=== PATIENT | male | born 1980 | race Caucasian/White ===

== ENCOUNTER 2018-12-20 19:00 | Inpatient (IN) | payer MEDICAID ==
[~2018-12-20] VITALS: Ht 170.2 cm; Wt 61.4 kg
[2018-12-20] MEDS ORDERED: AMPICILLIN/SULB 3 GM/NS (PMX) 100 ML IVPB STA (23:46)
--- NOTE | 2018-12-20 23:49 | ERD ---
ER Documentation Chief Complaint Chief Complaint L arm/hand swelling X 3 days HPI This is a 38-year-old man who was injecting heroin into his left upper extremity 2 days ago , he says that he is getting progressive swelling to the entire left arm. He said there is some erythema to the hand and that the swelling began in the hand has spread up the arm up to the shoulder now. No shortness of breath no chest pain denies any fever no numbness or weakness ROS All systems reviewed and are negative except as per history of present illness. Allergies Allergies: Coded Allergies: No Known Allergy (Unverified , 12/21/18) FmHx Family History: No coronary disease Physical Exam Vitals Vital Signs Date Temp Pulse Resp B/P (MAP) Pulse Ox O2 O2 Flow FiO2 Time Delivery Rate 12/20/18 100.0 99 18 121/63 100 19:31 (82) Physical Exam Const: Well-developed, well-nourished Head: Atraumatic, normocephalic Eyes: Normal Conjunctiva, PERRLA, EOMI, normal sclera, no nystagmus ENT: Normal External Ears, Nose and Mouth, moist mucus membranes. Neck: Full range of motion. No meningismus, no lymphadenopathy. Resp: Clear to auscultation bilaterally, no wheezing, rhonchi, rales Cardio: Regular rate and rhythm, no murmurs, S1 S2 present Abd: Soft, non tender x 4, non distended. Normal bowel sounds, no guarding or rebound, no pulsitile abdominal masses or bruits Skin: No petechiae or rashes, no ecchymosis , no maculopapular rash Back: No midline or flank tenderness Ext: No cyanosis, left upper extremity with the entire arm firm with edema, some erythema to the dorsum of the hand, FROM x 4, normal inspection, n eurovascularly intact x 4 Neur: Awake and alert, STR 5/5 x 4, sensation intact x 4, no focal f indings, cerebellum intact Psych: Normal Mood and Affect Result Diagram: 12/21/18 0000 12/21/18 0000 Results 24 hrs Laboratory Tests Test 12/21/18 00:00 White Blood Count 13.8 10^3/ul Red Blood Count 3.75 10^6/ul Hemoglobin 10.4 g/dl Hematocrit 31.8 % Mean Corpuscular Volume 84.8 fl Mean Corpuscular Hemoglobin 27.7 pg Mean Corpuscular Hemoglobin Concent 32.7 g/dl Red Cell Distribution Width 12.8 % Platelet Count 321 10^3/UL Mean Platelet Volume 8.9 fl Immature Granulocytes % 0.500 % Neutrophils % 74.5 % Lymphocytes % 14.5 % Monocytes % 8.6 % Eosinophils % 1.5 % Basophils % 0.4 % Nucleated Red Blood Cells % 0.0 /100WBC Immature Granulocytes # 0.070 10^3/ul Neutrophils # 10.3 10^3/ul Lymphocytes # 2.0 10^3/ul Monocytes # 1.2 10^3/ul Eosinophils # 0.2 10^3/ul Basophils # 0.1 10^3/ul Nucleated Red Blood Cells # 0.0 10^3/ul Sodium Level 137 mmol/L Potassium Level 3.7 mmol/L Chloride Level 95 mmol/L Carbon Dioxide Level 27 mmol/L Anion Gap 15 Blood Urea Nitrogen 17 mg/dl Creatinine 0.59 mg/dl Est Glomerular Filtrat Rate mL/min > 60 mL/min Glucose Level 139 mg/dl Calcium Level 8.5 mg/dl Total Bilirubin 0.3 mg/dl Direct Bilirubin 0.00 mg/dl Indirect Bilirubin 0.3 mg/dl Aspartate Amino Transf (AST/SGOT) 20 IU/L Alanine Aminotransferase (ALT/SGPT) 13 IU/L Alkaline Phosphatase 54 IU/L Total Protein 6.0 g/dl Albumin 3.4 g/dl Globulin 2.60 g/dl Albumin/Globulin Ratio 1.30 Current Medications Medications Dose Sig/Charly Start Time Status Last (Trade) Ordered Route PRN Stop Time Admin Dose Reason Admin Ampicillin 100 ml @ ONCE STAT 12/20/18 DC 12/21/18 Sodium/ 100 mls/hr IVPB 23:46 01:20 Sulbactam 12/21/18 00:45 Sodium Procedures/MDM Ordering MD: FILIBERTO DIANA DO Location: E/R Room/Bed: PROCEDURE: US upper extremity Venous. CLINICAL INDICATION: Left upper extremity swelling TECHNIQUE: Multiple sonographic images of the left upper extremity venous system was obtained utilizing grayscale, color-flow, compressive sonography and doppler imaging with augmentation. The images were reviewed on a PACS workstation. COMPARISON: None. FINDINGS: There is normal compressibility and flow within the right internal jugular vein, axillary vein, brachial, basilic, cephalic, radial and ulnar veins. There is flow seen within the left subclavian vein. IMPRESSION: No sonographic evidence for venous thrombosis in the left upper extremity. RPTAT: HAP Admit-r Pal, Physician Date Time Electronically viewed and signed by Admit-r Jose Daniel, Physician on 12/21/2018 03:02 AP/ CC: FILIBERTO DIANA DO [id number] Patient sonogram does not show a DVT. Will admit him for left upper extremity edema and cellulitis due to skin popping Departure Diagnosis: Primary Impression: Left arm cellulitis Additional Impression: Edema Edema type: unspecified Qualified Codes: R60.9 - Edema, unspecified Condition: Stable FILIBERTO DIANA DO Dec 20, 2018 23:49
--- NOTE | 2018-12-21 04:12 | HP ---
Date/Time of Note Date/Time of Note DATE: 12/21/18 TIME: 04:11 Assessment/Plan VTE Prophylaxis SCD applied (from Nsg): Yes Pharmacological prophylaxis: NA/contraindicated Pharm contraindication: low risk/ambulating Lines/Catheters IV Catheter Type (from Nrsg): [place] Assessment/Plan Hospital Course This is a 38-year-old male being admitted to the [facility] floor for: #1 sepsis: Secondary to left upper extremity cellulitis. Patient has history of IV drug use. At the current time we will put the patient on vancomycin and Zosyn. Trend lactic acid levels. Tylenol for fevers. Await culture results. #2 left upper extremity cellulitis: Patient has history of IV drug use, he does have an area of induration at the left lateral elbow as well. Continue IV antibiotics at the current time. Await culture results. I will also obtain a CT of the left upper extremity to assess for any underlying abscesses. #3 illicit drug use: History of heroin and meth use. Encourage cessation, s ocial services consultation. #4 DVT GI prophylaxis: SCDs, no GI prophylaxis indicated Further treatment strategy will be implemented as per the clinical course. Result Diagram: 12/21/18 0000 12/21/18 0000 Results 24hrs Laboratory Tests Test 12/21/18 00:00 White Blood Count 13.8 H Red Blood Count 3.75 L Hemoglobin 10.4 L Hematocrit 31.8 L Mean Corpuscular Volume 84.8 Mean Corpuscular Hemoglobin 27.7 L Mean Corpuscular Hemoglobin Concent 32.7 Red Cell Distribution Width 12.8 Platelet Count 321 Mean Platelet Volume 8.9 Immature Granulocytes % 0.500 H Neutrophils % 74.5 Lymphocytes % 14.5 L Monocytes % 8.6 Eosinophils % 1.5 Basophils % 0.4 Nucleated Red Blood Cells % 0.0 Immature Granulocytes # 0.070 H Neutrophils # 10.3 H Lymphocytes # 2.0 Monocytes # 1.2 H Eosinophils # 0.2 Basophils # 0.1 Nucleated Red Blood Cells # 0.0 Sodium Level 137 Potassium Level 3.7 Chloride Level 95 L Carbon Dioxide Level 27 Anion Gap 15 H Blood Urea Nitrogen 17 Creatinine 0.59 L Est Glomerular Filtrat Rate mL/min > 60 Glucose Level 139 Calcium Level 8.5 Total Bilirubin 0.3 Direct Bilirubin 0.00 Indirect Bilirubin 0.3 Aspartate Amino Transf (AST/SGOT) 20 Alanine Aminotransferase (ALT/SGPT) 13 Alkaline Phosphatase 54 Total Protein 6.0 L Albumin 3.4 Globulin 2.60 Albumin/Globulin Ratio 1.30 HPI/ROS Admit Date/Time Admit Date/Time Hx of Present Illness Chief complaint: Left arm swelling This is a 38-year-old man who was injecting heroin into his left upper 1 week ago states that he started developing arm pain and swelling about 5 days ago.. He is says that he is getting progressive swelling to the entire left arm. He said there is some erythema to the hand and that the swelling began in the hand has spread up the arm up to the shoulder now. No shortness of breath no chest pain denies any fever no numbness or weakness. Allergies: NKDA Medications: None ROS Const: As per HPI Eyes : No pain discharge or redness or change in visual acuity ENT: No pain, sore throat, congestion, congestion, dysphagia or discharge Respiratory: No shortness of breath, cough, sputum, wheezing, or pleuritic pain Cardiovascular: No chest pain, palpitation, PND, or edema GI : no change in appetite, abdominal pain, nausea, vomiting, diarrhea, constipation, or change in the color his stool Genitourinary: No dysuria, hematuria, flank pain , discharge or CVA tenderness Musculoskeletal: As per HPI Skin: No rash, bruising or hives Neuro: No headache, dizziness, syncope, seizure, focal weakness Endocrine: No polyuria, polydipsia, temperature intolerance Psych: No hallucination, depression, anxiety or suicidal ideation PMH/Family/Social Past Medical History Medical History: no pertinent history Medications Current Medications Ondansetron HCl (Zofran Inj) 4 mg BRIDGE ORDER PRN IV NAUSEA/VOMITING; Start 12/21/18 at 04:30; Stop 12/22/18 at 04:29 Acetaminophen (Tylenol Tab) 650 mg ER BRIDGE PRN PO .MILD PAIN 1-3 OR TEMP; Start 12/21/18 at 04:30; Stop 12/22/18 at 04:29 IV Flush (NS 3 ml) 3 ml PER PROTOCOL IV ; Start 12/21/18 at 04:30; Status UNV Ondansetron HCl (Zofran Inj) 4 mg Q4H PRN IV NAUSEA/VOMITING; Start 12/21/18 at 04:30; Status UNV Acetaminophen (Tylenol Tab) 650 mg Q6H PRN PO .PAIN 1-3 OR TEMP; Start 12/21/18 at 04:30; Status UNV Acetaminophen/ Hydrocodone Bitart ([place] (5/325)) 1 tab Q6H PRN PO .MOD PAIN 4- 6; Start 12/21/18 at 04:30; Status UNV Docusate Sodium (Colace) 100 mg Q12H PRN PO .CONSTIPATION; Start 12/21/18 at 04:30; Status UNV Bisacodyl (Dulcolax) 5 mg DAILY PRN PO .CONSTIPATION; Start 12/21/18 at 04:30; Status UNV Vancomycin HCl (Vanco Iv Per Pharmacy) VANCOMYCIN PER PHARMACY PER PROTOCOL XX ; Start 12/21/18 at 04:30; Status UNV Coded Allergies: No Known Allergy (Unverified , 12/21/18) Past Surgical History Past Surgical Hx: appendectomy Social History IV drug user Smoking Status: Current every day smoker Drug Use: heroin, other (Crystal meth) Exam/Review of Systems Vital Signs Vitals Vital Signs Date Temp Pulse Resp B/P (MAP) Pulse Ox O2 O2 Flow FiO2 Time Delivery Rate 12/20/18 100.0 99 18 121/63 100 19:31 (82) Intake and Output 12/20/18 12/20/18 12/21/18 1515:00 23:00 07:00 IntakeIntake Total 100 ml BalanceBalance 100 ml Exam Exam General: Patient is currently lying in bed in no acute distress HEENT: Atraumatic, normocephalic. The pupils are equal, round and reactive. Extraocular motor are intact Neck: Supple with full range of motion. No rigidity or meningismus Chest: Nontender Lungs: Clear to auscultation bilaterally no crackles rales or wheezing Heart: Normal S1-S2, Regular rhythm and rate. Abdomen: Soft , nontender, nondistended , bowel sounds are present. No guarding no rebound tenderness , No masses or organomegaly. No costovertebral temporal angle mass Extremities: Normal to inspection, no edema no cyanosis Skin: Area of induration at the left lateral elbow, swelling from the hand extending up towards the elbow. Erythema and warmth noted. Neurologic: Normal mental status, speech normal, cranial nerves II through XII are intact, motor and sensory are intact, no focal weakness Additional Comments PROCEDURE: US upper extremity Venous. CLINICAL INDICATION: Left upper extremity swelling TECHNIQUE: Multiple sonographic images of the left upper extremity venous system was obtained utilizing grayscale, color-flow, compressive sonography and doppler imaging with augmentation. The images were reviewed on a PACS workstation. COMPARISON: None. FINDINGS: There is normal compressibility and flow within the right internal jugular vein, axillary vein, brachial, basilic, cephalic, radial and ulnar veins. There is flow seen within the left subclavian vein. IMPRESSION: No sonographic evidence for venous thrombosis in the left upper extremity. RPTAT: HAP Admit-r Pal, Physician Date Time Electronically viewed and signed by Admit-r Jose Daniel, Physician on 12/21/2018 03:02 AP/ CC: FILIBERTO DIANA DO [id number] NASIR STANFORD Dec 21, 2018 04:12
[2018-12-21] MEDS ORDERED: NACL 0.9% 3 ML SYG IV SCH (04:30)
[2018-12-21] MEDS ORDERED: VANCOMYCIN IV PER PHARMACY XX SCH (04:30)
[2018-12-21] MEDS ORDERED: DOCUSATE SODIUM 100 MG CAP PO PRN (04:30)
[2018-12-21] MEDS ORDERED: BISACODYL (EC) 5 MG TAB PO PRN (04:30)
[2018-12-21] MEDS ORDERED: ONDANSETRON 4 MG INJ IV PRN ×2 (04:30)
[2018-12-21] MEDS ORDERED: ACETAMINOPHEN 325 MG TAB PO PRN ×2 (04:30)
[2018-12-21] MEDS ORDERED: SOD CHLORIDE 0.9% 100 ML ONE (05:24)
[2018-12-21] MEDS ORDERED: IOHEXOL 300MG/ML 150 ML BTL ONE (05:24)
[2018-12-21 06:00] VITALS: BP 109/56; PULSE 90; RESP 19
[2018-12-21] MEDS: HYDROCODONE/APAP (5/325) TAB PO PRN ×3 (06:15→16:40)
[2018-12-21] MEDS ORDERED: VANCOMYCIN HCL 1.25 GM in SOD CHLORIDE 0.9% 250 ML IVPB SCH (06:30)
[2018-12-21 06:40] VITALS: Ht 170.2 cm; Wt 61.4 kg
[2018-12-21 08:07] VITALS: BP 106/56; PULSE 80; RESP 18
[2018-12-21] MEDS: PIPER-TAZO 3.375 GM IV (PMX) 100 ML IVPB SCH ×3 (11:46→17:55)
[2018-12-21 14:01] VITALS: BP 115/60; PULSE 75; RESP 16
--- NOTE | 2018-12-21 15:43 | PN ---
Date/Time of Note Date/Time of Note DATE: 12/21/18 TIME: 15:40 Assessment/Plan VTE Prophylaxis SCD applied (from Nsg): Yes Pharmacological prophylaxis: NA/contraindicated Pharm contraindication: low risk/ambulating Lines/Catheters IV Catheter Type (from Nrsg): Peripheral IV Assessment/Plan Hospital Course SUBJECTIVE: Remains afebrile. OBJECTIVE: Physical Exam general: Adequately build 38 year-old male lying in bed in no apparent distress, looks disheveled. HEENT: Normocephalic, atraumatic. Eyes: Anicteric sclerae, conjunctivae clear. ENT: Nasal septum midline, oral mucosa moist. Neck supple, no JVD noticed. Respiratory: Bilaterally clear breath sounds. No use of accessory muscles of respiration. No adventitious breath sounds. Cardiovascular: S1, S2 heard. Regular rate and rhythm. Abdomen: Soft, nontender, and nondistended. Bowel sounds positive in all 4 quadrants. Genitourinary: Deferred. Extremities: No cyanosis, no clubbing. Left upper extremity redness with erythema and tenderness in the left elbow area. Neurologic: Cranial nerves II through XII grossly intact. The patient is awake, alert, and oriented. Skin: Normal skin turgor. No skin rashes. Labs & Vitals per chart ASSESSMENT & PLAN This is a 38-year-old male who is homeless with a past medical history of IV drug abuse who came to the emergency room with chief complaint of left upper extremity swelling and redness at the injection site. The patient was noticed to have leukocytosis, febrile illness, and tachycardia. The patient was admitted to inpatient setting for further treatment and evaluation. 1. Left upper extremity cellulitis secondary to IV drug use. -Continue antimicrobials -Left upper extremity CT scan negative for any abscess or myositis. -Elevate the left upper extremity. 2. Sepsis with leukocytosis, tachycardia, febrile illness, present on admission. -Secondary to #1. -Continue antimicrobials. 3. Normocytic anemia. -Iron panel showing low iron level and low iron saturation with a normal TIBC and ferritin. -Monitor H&H closely. 4. Fluids, electrolytes, and nutrition. -Regular diet. 5. DVT prophylaxis -Subcutaneous Lovenox. 6. Plan. -Continue antimicrobials. -Await clinical improvement. The patient was seen in collaboration with Dr. Hernandez. Result Diagram: 12/21/18 0000 12/21/18 0000 Results 24hrs Laboratory Tests Test 12/21/18 00:00 12/21/18 06:00 12/21/18 07:05 White Blood Count 13.8 H Red Blood Count 3.75 L Hemoglobin 10.4 L Hematocrit 31.8 L Mean Corpuscular Volume 84.8 Mean Corpuscular Hemoglobin 27.7 L Mean Corpuscular Hemoglobin Concent 32.7 Red Cell Distribution Width 12.8 Platelet Count 321 Mean Platelet Volume 8.9 Immature Granulocytes % 0.500 H Neutrophils % 74.5 Lymphocytes % 14.5 L Monocytes % 8.6 Eosinophils % 1.5 Basophils % 0.4 Nucleated Red Blood Cells % 0.0 Immature Granulocytes # 0.070 H Neutrophils # 10.3 H Lymphocytes # 2.0 Monocytes # 1.2 H Eosinophils # 0.2 Basophils # 0.1 Nucleated Red Blood Cells # 0.0 Sodium Level 137 Potassium Level 3.7 Chloride Level 95 L Carbon Dioxide Level 27 Anion Gap 15 H Blood Urea Nitrogen 17 Creatinine 0.59 L Est Glomerular Filtrat Rate mL/min > 60 Glucose Level 139 Calcium Level 8.5 Total Bilirubin 0.3 Direct Bilirubin 0.00 Indirect Bilirubin 0.3 Aspartate Amino Transf (AST/SGOT) 20 Alanine Aminotransferase (ALT/SGPT) 13 Alkaline Phosphatase 54 Total Protein 6.0 L Albumin 3.4 Globulin 2.60 Albumin/Globulin Ratio 1.30 Urine Opiates Screen Positive Urine Barbiturates Negative Urine Amphetamines Screen POSITIVE Urine Benzodiazepines Screen Negative Urine Cocaine Screen Negative Urine Cannabinoids Negative Prothrombin Time 14.7 Prothrombin Time Ratio 1.1 INR International Normalized Ratio 1.14 Activated Partial Thromboplast Time 39.3 H Iron Level 11 L Total Iron Binding Capacity 268 Percent Iron Saturation 4 L Ferritin 86.0 Ethyl Alcohol Level < 10.0 H Exam/Review of Systems Exam Vitals Vital Signs Date Temp Pulse Resp B/P (MAP) Pulse Ox O2 O2 Flow FiO2 Time Delivery Rate 12/21/18 97.6 75 16 115/60 96 14:01 (78) 12/21/18 Room Air 06:00 Intake and Output 12/20/18 12/20/18 12/21/18 1515:00 23:00 07:00 IntakeIntake Total 100 ml BalanceBalance 100 ml Results Results 24hrs Laboratory Tests Test 12/21/18 00:00 12/21/18 06:00 12/21/18 07:05 White Blood Count 13.8 H Red Blood Count 3.75 L Hemoglobin 10.4 L Hematocrit 31.8 L Mean Corpuscular Volume 84.8 Mean Corpuscular Hemoglobin 27.7 L Mean Corpuscular Hemoglobin Concent 32.7 Red Cell Distribution Width 12.8 Platelet Count 321 Mean Platelet Volume 8.9 Immature Granulocytes % 0.500 H Neutrophils % 74.5 Lymphocytes % 14.5 L Monocytes % 8.6 Eosinophils % 1.5 Basophils % 0.4 Nucleated Red Blood Cells % 0.0 Immature Granulocytes # 0.070 H Neutrophils # 10.3 H Lymphocytes # 2.0 Monocytes # 1.2 H Eosinophils # 0.2 Basophils # 0.1 Nucleated Red Blood Cells # 0.0 Sodium Level 137 Potassium Level 3.7 Chloride Level 95 L Carbon Dioxide Level 27 Anion Gap 15 H Blood Urea Nitrogen 17 Creatinine 0.59 L Est Glomerular Filtrat Rate mL/min > 60 Glucose Level 139 Calcium Level 8.5 Total Bilirubin 0.3 Direct Bilirubin 0.00 Indirect Bilirubin 0.3 Aspartate Amino Transf (AST/SGOT) 20 Alanine Aminotransferase (ALT/SGPT) 13 Alkaline Phosphatase 54 Total Protein 6.0 L Albumin 3.4 Globulin 2.60 Albumin/Globulin Ratio 1.30 Urine Opiates Screen Positive Urine Barbiturates Negative Urine Amphetamines Screen POSITIVE Urine Benzodiazepines Screen Negative Urine Cocaine Screen Negative Urine Cannabinoids Negative Prothrombin Time 14.7 Prothrombin Time Ratio 1.1 INR International Normalized Ratio 1.14 Activated Partial Thromboplast Time 39.3 H Iron Level 11 L Total Iron Binding Capacity 268 Percent Iron Saturation 4 L Ferritin 86.0 Ethyl Alcohol Level < 10.0 H Medications Medication Current Medications Ondansetron HCl (Zofran Inj) 4 mg BRIDGE ORDER PRN IV NAUSEA/VOMITING; Start 12/21/18 at 04:30; Stop 12/22/18 at 04:29 IV Flush (NS 3 ml) 3 ml PER PROTOCOL IV ; Start 12/21/18 at 04:30 Ondansetron HCl (Zofran Inj) 4 mg Q4H PRN IV NAUSEA/VOMITING; Start 12/21/18 at 04:30 Acetaminophen (Tylenol Tab) 650 mg Q6H PRN PO .PAIN 1-3 OR TEMP; Start 12/21/18 at 04:30 Acetaminophen/ Hydrocodone Bitart ([place] (5/325)) 1 tab Q6H PRN PO .MOD PAIN 4- 6 Last administered on 12/21/18at 06:15; Admin Dose 1 TAB; Start 12/21/18 at 04:30 Docusate Sodium (Colace) 100 mg Q12H PRN PO .CONSTIPATION; Start 12/21/18 at 04:30 Bisacodyl (Dulcolax) 5 mg DAILY PRN PO .CONSTIPATION; Start 12/21/18 at 04:30 Vancomycin HCl (Vanco Iv Per Pharmacy) VANCOMYCIN PER PHARMACY PER PROTOCOL XX ; Start 12/21/18 at 04:30 Piperacillin Sod/ Tazobactam Sod 100 ml @ 200 mls/hr Q6 IVPB Last administered on 12/21/18at 11:46; Admin Dose 200 MLS/HR; Start 12/21/18 at 08:00 Vancomycin HCl 250 ml @ 125 mls/hr Q8H IVPB ; Start 12/21/18 at 16:00 Miscellaneous Information (*Rx Drug Level Order Reminder*) VANCOMYCIN TROUGH AT 0700 ONCE ONCE XX ; Start 12/22/18 at 07:00; Stop 12/22/18 at 07:01 KIMBERLY SHORT NP Dec 21, 2018 15:43
[2018-12-21] MEDS: VANCOMYCIN 1 GM 250 ML IVPB SCH (16:31)
[2018-12-21 20:00] VITALS: BP 114/65; PULSE 90; RESP 18
[2018-12-22] MEDS: PIPER-TAZO 3.375 GM IV (PMX) 100 ML IVPB SCH ×4 (00:03→17:31)
[2018-12-22] MEDS: VANCOMYCIN 1 GM 250 ML IVPB SCH ×2 (00:04→09:21)
[2018-12-22 02:00] VITALS: BP 103/54; PULSE 96; RESP 18
[2018-12-22 08:11] VITALS: BP 91/55; PULSE 66; RESP 18
[2018-12-22 14:00] VITALS: BP 120/61; PULSE 88; RESP 19
--- NOTE | 2018-12-22 15:15 | PN ---
Date/Time of Note Date/Time of Note DATE: 12/22/18 TIME: 15:10 Assessment/Plan VTE Prophylaxis Risk score (from Ns)>0 risk: 1 SCD applied (from Ns): Yes SCD contraindicated: low risk/ambulating Pharmacological prophylaxis: LMWH Lines/Catheters IV Catheter Type (from Nrs): Peripheral IV Urinary Cath still in place: No Assessment/Plan Hospital Course A/P 1. LUE cellulitis; mod stable, cont vanc. 2. H/o IVDA; meth/ heroin, tobacco; sp tt booster on the recent past 3. Ftt/ homelessness S: Moderate pain and edema remains. No fevers chills or nausea. Appetite great. Denies injury but states he is homeless. Possible IVDA associated Objective: Vital signs stable Physical exam No pallor Regular Clear Benign Lue: edema, erythema, tender, between elbow- wrist Rom- intact in his joints. No adenopathy Result Diagram: 12/22/18 0552 12/22/18 0552 Results 24hrs Laboratory Tests Test 12/22/18 05:52 12/22/18 07:07 White Blood Count 12.3 H Red Blood Count 3.71 L Hemoglobin 10.3 L Hematocrit 32.1 L Mean Corpuscular Volume 86.5 Mean Corpuscular Hemoglobin 27.8 L Mean Corpuscular Hemoglobin Concent 32.1 Red Cell Distribution Width 13.0 Platelet Count 295 Mean Platelet Volume 9.2 Immature Granulocytes % 0.700 H Neutrophils % 79.3 H Lymphocytes % 11.0 L Monocytes % 7.2 Eosinophils % 1.4 Basophils % 0.4 Nucleated Red Blood Cells % 0.0 Immature Granulocytes # 0.080 H Neutrophils # 9.8 H Lymphocytes # 1.4 Monocytes # 0.9 Eosinophils # 0.2 Basophils # 0.1 Nucleated Red Blood Cells # 0.0 Erythrocyte Sedimentation Rate 45 H Blood Urea Nitrogen 10 Creatinine 0.58 L Hemoglobin A1c 5.9 Phosphorus Level 4.2 Magnesium Level 2.4 C-Reactive Protein 14.8 H Triglycerides Level 38 Cholesterol Level 83 L LDL Cholesterol, Calculated 45 HDL Cholesterol 30 Cholesterol/HDL Ratio 2.7 Vancomycin Level Trough < 5.0 L Exam/Review of Systems Exam Vitals Vital Signs Date Temp Pulse Resp B/P (MAP) Pulse Ox O2 O2 Flow FiO2 Time Delivery Rate 12/22/18 98.2 88 19 120/61 98 14:00 (80) 12/21/18 Room Air 06:00 Intake and Output 12/21/18 12/21/18 12/22/18 1515:00 23:00 07:00 IntakeIntake Total 350 ml 1350 ml 2350 ml OutputOutput Total 800 ml BalanceBalance 350 ml 550 ml 2350 ml Results Results 24hrs Laboratory Tests Test 12/22/18 05:52 12/22/18 07:07 White Blood Count 12.3 H Red Blood Count 3.71 L Hemoglobin 10.3 L Hematocrit 32.1 L Mean Corpuscular Volume 86.5 Mean Corpuscular Hemoglobin 27.8 L Mean Corpuscular Hemoglobin Concent 32.1 Red Cell Distribution Width 13.0 Platelet Count 295 Mean Platelet Volume 9.2 Immature Granulocytes % 0.700 H Neutrophils % 79.3 H Lymphocytes % 11.0 L Monocytes % 7.2 Eosinophils % 1.4 Basophils % 0.4 Nucleated Red Blood Cells % 0.0 Immature Granulocytes # 0.080 H Neutrophils # 9.8 H Lymphocytes # 1.4 Monocytes # 0.9 Eosinophils # 0.2 Basophils # 0.1 Nucleated Red Blood Cells # 0.0 Erythrocyte Sedimentation Rate 45 H Blood Urea Nitrogen 10 Creatinine 0.58 L Hemoglobin A1c 5.9 Phosphorus Level 4.2 Magnesium Level 2.4 C-Reactive Protein 14.8 H Triglycerides Level 38 Cholesterol Level 83 L LDL Cholesterol, Calculated 45 HDL Cholesterol 30 Cholesterol/HDL Ratio 2.7 Vancomycin Level Trough < 5.0 L Medications Medication Current Medications IV Flush (NS 3 ml) 3 ml PER PROTOCOL IV ; Start 12/21/18 at 04:30 Ondansetron HCl (Zofran Inj) 4 mg Q4H PRN IV NAUSEA/VOMITING; Start 12/21/18 at 04:30 Acetaminophen (Tylenol Tab) 650 mg Q6H PRN PO .PAIN 1-3 OR TEMP; Start 12/21/18 at 04:30 Acetaminophen/ Hydrocodone Bitart ([place] (5/325)) 1 tab Q6H PRN PO .MOD PAIN 4- 6 Last administered on 12/21/18at 16:40; Admin Dose 1 TAB; Start 12/21/18 at 04:30 Docusate Sodium (Colace) 100 mg Q12H PRN PO .CONSTIPATION; Start 12/21/18 at 04:30 Bisacodyl (Dulcolax) 5 mg DAILY PRN PO .CONSTIPATION; Start 12/21/18 at 04:30 Vancomycin HCl (Vanco Iv Per Pharmacy) VANCOMYCIN PER PHARMACY PER PROTOCOL XX ; Start 12/21/18 at 04:30 Piperacillin Sod/ Tazobactam Sod 100 ml @ 200 mls/hr Q6 IVPB Last administered on 12/22/18at 11:45; Admin Dose 200 MLS/HR; Start 12/21/18 at 08:00 Vancomycin HCl 1.25 gm/Sodium Chloride 250 ml @ 83.333 mls/ hr Q8H IVPB ; Start 12/22/18 at 16:00 SRAVANI HENDRICKSON MD Dec 22, 2018 15:15
[2018-12-22] MEDS ORDERED: HYDROCODONE/APAP (10/325) TAB PO PRN (15:30)
[2018-12-22] MEDS: VANCOMYCIN HCL 1.25 GM in SOD CHLORIDE 0.9% 250 ML IVPB SCH (16:32)
[2018-12-22 19:55] VITALS: BP 93/50; PULSE 95; RESP 18
[2018-12-22] MEDS: LACTOBACILLUS RHAMNOSUS CAP PO SCH (20:55)
[2018-12-23] MEDS: PIPER-TAZO 3.375 GM IV (PMX) 100 ML IVPB SCH ×4 (00:07→19:03)
[2018-12-23] MEDS: VANCOMYCIN HCL 1.25 GM in SOD CHLORIDE 0.9% 250 ML IVPB SCH ×3 (00:38→16:05)
[2018-12-23 02:14] VITALS: BP 109/64; PULSE 89; RESP 20
[2018-12-23 07:57] VITALS: BP 106/57; PULSE 82; RESP 16
[2018-12-23] MEDS: LACTOBACILLUS RHAMNOSUS CAP PO SCH ×2 (09:20→20:40)
[2018-12-23 14:30] VITALS: BP 97/57; PULSE 85; RESP 18
--- NOTE | 2018-12-23 14:36 | PN ---
Date/Time of Note Date/Time of Note DATE: 12/23/18 TIME: 14:36 Assessment/Plan VTE Prophylaxis Risk score (from Ns)>0 risk: 1 SCD applied (from Ns): Yes SCD contraindicated: low risk/ambulating Pharmacological prophylaxis: LMWH Lines/Catheters IV Catheter Type (from Nrs): Peripheral IV Urinary Cath still in place: No Assessment/Plan Hospital Course A/P 1. LUE cellulitis; mod stable, cont vanc. 2. H/o IVDA; meth/ heroin, tobacco; sp tt booster on the recent past 3. Ftt/ homelessness S: 12/22 moderate pain and edema remains. No fevers chills or nausea. Appetite great. Denies injury but states he is homeless. Possible IVDA associated 12/23: No events no diarrhea or fever. Planning to return to his tent/previous living situation on discharge. Objective: Vital signs stable Physical exam No pallor Regular Clear Benign Lue: edema, erythema, tender, between elbow- wrist Rom- intact in his joints. No adenopathy Result Diagram: 12/23/18 0657 12/23/18 0657 Results 24hrs Laboratory Tests Test 12/23/18 06:57 White Blood Count 13.2 H Red Blood Count 4.04 L Hemoglobin 11.2 L Hematocrit 35.0 L Mean Corpuscular Volume 86.6 Mean Corpuscular Hemoglobin 27.7 L Mean Corpuscular Hemoglobin Concent 32.0 Red Cell Distribution Width 13.1 Platelet Count 374 # Mean Platelet Volume 9.1 Immature Granulocytes % 0.500 H Neutrophils % 82.2 H Lymphocytes % 9.4 L Monocytes % 6.2 Eosinophils % 1.2 Basophils % 0.5 Nucleated Red Blood Cells % 0.0 Immature Granulocytes # 0.070 H Neutrophils # 10.9 H Lymphocytes # 1.2 Monocytes # 0.8 Eosinophils # 0.2 Basophils # 0.1 Nucleated Red Blood Cells # 0.0 Sodium Level 142 Potassium Level 4.7 Chloride Level 103 Carbon Dioxide Level 29 Anion Gap 10 Blood Urea Nitrogen 9 Creatinine 0.56 L Est Glomerular Filtrat Rate mL/min > 60 Glucose Level 102 Calcium Level 8.9 Total Bilirubin 0.2 Direct Bilirubin 0.00 Indirect Bilirubin 0.2 Aspartate Amino Transf (AST/SGOT) 124 H Alanine Aminotransferase (ALT/SGPT) 96 H Alkaline Phosphatase 145 H Total Protein 5.8 L Albumin 3.1 L Globulin 2.70 Albumin/Globulin Ratio 1.14 Thyroid Stimulating Hormone (TSH) 0.202 L Hepatitis B Surface Antigen NEGATIVE Hepatitis B Core Total Antibody NEGATIVE Hepatitis C Antibody NEGATIVE Exam/Review of Systems Exam Vitals Vital Signs Date Temp Pulse Resp B/P (MAP) Pulse Ox O2 O2 Flow FiO2 Time Delivery Rate 12/23/18 98.3 85 18 97/57 (70) 98 14:30 12/21/18 Room Air 06:00 Intake and Output 12/22/18 12/22/18 12/23/18 1515:00 23:00 07:00 IntakeIntake Total 1110 ml 710 ml 450 ml OutputOutput Total 1500 ml 400 ml 1050 ml BalanceBalance -390 ml 310 ml -600 ml Results Results 24hrs Laboratory Tests Test 12/23/18 06:57 White Blood Count 13.2 H Red Blood Count 4.04 L Hemoglobin 11.2 L Hematocrit 35.0 L Mean Corpuscular Volume 86.6 Mean Corpuscular Hemoglobin 27.7 L Mean Corpuscular Hemoglobin Concent 32.0 Red Cell Distribution Width 13.1 Platelet Count 374 # Mean Platelet Volume 9.1 Immature Granulocytes % 0.500 H Neutrophils % 82.2 H Lymphocytes % 9.4 L Monocytes % 6.2 Eosinophils % 1.2 Basophils % 0.5 Nucleated Red Blood Cells % 0.0 Immature Granulocytes # 0.070 H Neutrophils # 10.9 H Lymphocytes # 1.2 Monocytes # 0.8 Eosinophils # 0.2 Basophils # 0.1 Nucleated Red Blood Cells # 0.0 Sodium Level 142 Potassium Level 4.7 Chloride Level 103 Carbon Dioxide Level 29 Anion Gap 10 Blood Urea Nitrogen 9 Creatinine 0.56 L Est Glomerular Filtrat Rate mL/min > 60 Glucose Level 102 Calcium Level 8.9 Total Bilirubin 0.2 Direct Bilirubin 0.00 Indirect Bilirubin 0.2 Aspartate Amino Transf (AST/SGOT) 124 H Alanine Aminotransferase (ALT/SGPT) 96 H Alkaline Phosphatase 145 H Total Protein 5.8 L Albumin 3.1 L Globulin 2.70 Albumin/Globulin Ratio 1.14 Thyroid Stimulating Hormone (TSH) 0.202 L Hepatitis B Surface Antigen NEGATIVE Hepatitis B Core Total Antibody NEGATIVE Hepatitis C Antibody NEGATIVE Medications Medication Current Medications IV Flush (NS 3 ml) 3 ml PER PROTOCOL IV ; Start 12/21/18 at 04:30 Ondansetron HCl (Zofran Inj) 4 mg Q4H PRN IV NAUSEA/VOMITING; Start 12/21/18 at 04:30 Acetaminophen (Tylenol Tab) 650 mg Q6H PRN PO .PAIN 1-3 OR TEMP; Start 12/21/18 at 04:30 Docusate Sodium (Colace) 100 mg Q12H PRN PO .CONSTIPATION; Start 12/21/18 at 04:30 Bisacodyl (Dulcolax) 5 mg DAILY PRN PO .CONSTIPATION; Start 12/21/18 at 04:30 Vancomycin HCl (Vanco Iv Per Pharmacy) VANCOMYCIN PER PHARMACY PER PROTOCOL XX ; Start 12/21/18 at 04:30 Piperacillin Sod/ Tazobactam Sod 100 ml @ 200 mls/hr Q6 IVPB Last administered on 12/23/18at 12:38; Admin Dose 200 MLS/HR; Start 12/21/18 at 08:00 Vancomycin HCl 1.25 gm/Sodium Chloride 250 ml @ 83.333 mls/ hr Q8H IVPB Last administered on 12/23/18at 09:19; Admin Dose 83.333 MLS/HR; Start 12/22/18 at 16:00 Lactobacillus Acidophilus/ Rhamnosus (Culturelle) 1 cap BID PO Last administered on 12/23/18at 09:20; Admin Dose 1 CAP; Start 12/22/18 at 21:00 Acetaminophen/ Hydrocodone Bitart ([place] (10/325)) 1 tab Q4H PRN PO MODERATE PAIN LEVEL 4-6; Start 12/22/18 at 15:30 Miscellaneous Information (*Rx Drug Level Order Reminder*) 1 ONCE ONCE XX ; Start 12/24/18 at 07:00; Stop 12/24/18 at 07:01 SRAVANI HENDRICKSON MD Dec 23, 2018 14:36
[2018-12-23 19:53] VITALS: BP 118/65; PULSE 87; RESP 20
[2018-12-24] MEDS: PIPER-TAZO 3.375 GM IV (PMX) 100 ML IVPB SCH ×2 (00:03→06:03)
[2018-12-24] MEDS: VANCOMYCIN HCL 1.25 GM in SOD CHLORIDE 0.9% 250 ML IVPB SCH (00:55)
[2018-12-24 02:15] VITALS: BP 113/60; PULSE 94; RESP 17
[2018-12-24 08:19] VITALS: BP 121/71; PULSE 93; RESP 16
[2018-12-24] MEDS: LACTOBACILLUS RHAMNOSUS CAP PO SCH ×2 (09:38→21:03)
[2018-12-24] MEDS: ENOXAPARIN 40 MG/0.4 ML SYG SC SCH (09:38)
--- NOTE | 2018-12-24 12:04 | PN ---
Date/Time of Note Date/Time of Note DATE: 12/24/18 TIME: 12:03 Assessment/Plan VTE Prophylaxis Risk score (from Ns)>0 risk: 1 SCD applied (from Ns): Yes SCD contraindicated: low risk/ambulating Pharmacological prophylaxis: LMWH Lines/Catheters IV Catheter Type (from [facility]): Saline Lock Urinary Cath still in place: No Assessment/Plan Hospital Course A/P 1. LUE cellulitis; mod stable, cont antibiotics. We will switch from IV to Bactrim and see if healing continues 2. H/o IVDA; meth/ heroin, tobacco; sp tt booster on the recent past 3. Ftt/ homelessness line 4. Anemia S: 12/22 moderate pain and edema remains. No fevers chills or nausea. Appetite great. Denies injury but states he is homeless. Possible IVDA associated 12/23: No events no diarrhea or fever. Planning to return to his tent/previous living situation on discharge. 12/24 feels better. No fever diarrhea Objective: Vital signs stable Physical exam No pallor Regular Clear Benign Lue: edema, erythema, tender, between elbow- wrist Rom- intact in his joints. No adenopathy Result Diagram: 12/24/18 0651 12/24/18 0651 Results 24hrs Laboratory Tests Test 12/24/18 06:50 12/24/18 06:51 Free Thyroxine 1.32 Vancomycin Level Trough 24.5 *H White Blood Count 9.7 # Red Blood Count 3.52 L Hemoglobin 9.8 L Hematocrit 31.4 L Mean Corpuscular Volume 89.2 Mean Corpuscular Hemoglobin 27.8 L Mean Corpuscular Hemoglobin Concent 31.2 L Red Cell Distribution Width 12.8 Platelet Count 328 Mean Platelet Volume 8.5 Immature Granulocytes % 0.700 H Neutrophils % 67.9 Lymphocytes % 20.2 Monocytes % 8.3 Eosinophils % 2.5 Basophils % 0.4 Nucleated Red Blood Cells % 0.0 Immature Granulocytes # 0.070 H Neutrophils # 6.6 Lymphocytes # 2.0 Monocytes # 0.8 Eosinophils # 0.2 Basophils # 0.0 Nucleated Red Blood Cells # 0.0 Sodium Level 142 Potassium Level 3.9 Chloride Level 107 Carbon Dioxide Level 27 Anion Gap 8 Blood Urea Nitrogen 10 Creatinine 0.74 Est Glomerular Filtrat Rate mL/min > 60 Glucose Level 115 Calcium Level 8.6 Total Triiodothyronine 0.84 L Exam/Review of Systems Exam Vitals Vital Signs Date Temp Pulse Resp B/P (MAP) Pulse Ox O2 O2 Flow FiO2 Time Delivery Rate 12/24/18 98.3 93 16 121/71 97 08:19 (88) 12/21/18 Room Air 06:00 Intake and Output 12/23/18 12/23/18 12/24/18 1515:00 23:00 07:00 IntakeIntake Total 970 ml 350 ml 450 ml BalanceBalance 970 ml 350 ml 450 ml Results Results 24hrs Laboratory Tests Test 12/24/18 06:50 12/24/18 06:51 Free Thyroxine 1.32 Vancomycin Level Trough 24.5 *H White Blood Count 9.7 # Red Blood Count 3.52 L Hemoglobin 9.8 L Hematocrit 31.4 L Mean Corpuscular Volume 89.2 Mean Corpuscular Hemoglobin 27.8 L Mean Corpuscular Hemoglobin Concent 31.2 L Red Cell Distribution Width 12.8 Platelet Count 328 Mean Platelet Volume 8.5 Immature Granulocytes % 0.700 H Neutrophils % 67.9 Lymphocytes % 20.2 Monocytes % 8.3 Eosinophils % 2.5 Basophils % 0.4 Nucleated Red Blood Cells % 0.0 Immature Granulocytes # 0.070 H Neutrophils # 6.6 Lymphocytes # 2.0 Monocytes # 0.8 Eosinophils # 0.2 Basophils # 0.0 Nucleated Red Blood Cells # 0.0 Sodium Level 142 Potassium Level 3.9 Chloride Level 107 Carbon Dioxide Level 27 Anion Gap 8 Blood Urea Nitrogen 10 Creatinine 0.74 Est Glomerular Filtrat Rate mL/min > 60 Glucose Level 115 Calcium Level 8.6 Total Triiodothyronine 0.84 L Medications Medication Current Medications IV Flush (NS 3 ml) 3 ml PER PROTOCOL IV ; Start 12/21/18 at 04:30 Ondansetron HCl (Zofran Inj) 4 mg Q4H PRN IV NAUSEA/VOMITING; Start 12/21/18 at 04:30 Acetaminophen (Tylenol Tab) 650 mg Q6H PRN PO .PAIN 1-3 OR TEMP; Start 12/21/18 at 04:30 Docusate Sodium (Colace) 100 mg Q12H PRN PO .CONSTIPATION; Start 12/21/18 at 04:30 Bisacodyl (Dulcolax) 5 mg DAILY PRN PO .CONSTIPATION; Start 12/21/18 at 04:30 Vancomycin HCl (Vanco Iv Per Pharmacy) VANCOMYCIN PER PHARMACY PER PROTOCOL XX ; Start 12/21/18 at 04:30 Piperacillin Sod/ Tazobactam Sod 100 ml @ 200 mls/hr Q6 IVPB Last administered on 12/24/18at 06:03; Admin Dose 200 MLS/HR; Start 12/21/18 at 08:00 Lactobacillus Acidophilus/ Rhamnosus (Culturelle) 1 cap BID PO Last administered on 12/24/18at 09:38; Admin Dose 1 CAP; Start 12/22/18 at 21:00 Acetaminophen/ Hydrocodone Bitart ([place] ()) 1 tab Q4H PRN PO MODERATE PAIN LEVEL 4-6; Start 12/22/18 at 15:30 Enoxaparin Sodium (Lovenox) 40 mg DAILY SC Last administered on 12/24/18at 09:38; Admin Dose 40 MG; Start 12/24/18 at 09:00 Vancomycin HCl 1.25 gm/Sodium Chloride 250 ml @ 83.333 mls/ hr Q12H IVPB ; Start 12/24/18 at 14:00 SRAVANI HENDRICKSON MD Dec 24, 2018 12:04
[2018-12-24] MEDS ORDERED: VANCOMYCIN HCL 1.25 GM in SOD CHLORIDE 0.9% 250 ML IVPB SCH (14:00)
[2018-12-24] MEDS ORDERED: TRIMETHOPRIM/SULFAMETHOX (PO SYG) NGT SCH (14:00)
[2018-12-24 14:46] VITALS: BP 113/72; PULSE 95; RESP 16
[2018-12-24] MEDS: TRIMETHOPRIM/SULFAMETHOX (PO SYG) NGT SCH ×2 (15:45→21:04)
[2018-12-24 20:31] VITALS: BP 126/71; PULSE 94; RESP 18
[2018-12-25] MEDS ORDERED: TRIMETHOPRIM/SULFAMETHOX (PO SYG) NGT SCH (00:39)
[2018-12-25 08:36] VITALS: BP 115/77; PULSE 87; RESP 18
[2018-12-25] MEDS: LACTOBACILLUS RHAMNOSUS CAP PO SCH ×2 (09:22→21:14)
[2018-12-25] MEDS: ENOXAPARIN 40 MG/0.4 ML SYG SC SCH (09:22)
[2018-12-25] MEDS: TRIMETHOPRIM/SULFAMETHOX (PO SYG) NGT SCH ×2 (09:24→21:14)
--- NOTE | 2018-12-25 12:47 | PN ---
Date/Time of Note Date/Time of Note DATE: 12/25/18 TIME: 12:46 Assessment/Plan VTE Prophylaxis Risk score (from Nsg)>0 risk: 1 SCD applied (from Ns): No SCD contraindicated: low risk/ambulating Pharmacological prophylaxis: LMWH Lines/Catheters IV Catheter Type (from Nrsg): Saline Lock Urinary Cath still in place: No Assessment/Plan Hospital Course A/P 1. LUE cellulitis; mod stable, cont antibiotics. We will switch from IV to Bactrim and see if remains stable. 2. H/o IVDA; meth/ heroin, tobacco; sp tt booster on the recent past 3. Ftt/ homelessness 4. Anemia S: 12/22 moderate pain and edema remains. No fevers chills or nausea. Appetite great. Denies injury but states he is homeless. Possible IVDA associated 12/23: No events no diarrhea or fever. Planning to return to his tent/previous living situation on discharge. 12/24 feels better. No fever diarrhea 12/25: Feels better no events much improved. Home tomorrow if stable Objective: Vital signs stable Physical exam No pallor Regular Clear Benign Lue: edema, erythema, tender, between elbow- wrist Rom- intact in his joints. No adenopathy Result Diagram: 12/24/18 0651 12/24/18 0651 Results 24hrs Laboratory Tests Test 12/25/18 09:38 Lab Scanned Report REFERENCE LAB Exam/Review of Systems Exam Vitals Vital Signs Date Temp Pulse Resp B/P (MAP) Pulse Ox O2 O2 Flow FiO2 Time Delivery Rate 12/25/18 98.3 87 18 115/77 98 Room Air 08:36 (90) Intake and Output 12/24/18 12/24/18 12/25/18 1414:59 22:59 06:59 IntakeIntake Total 800 ml 250 ml BalanceBalance 800 ml 250 ml Results Results 24hrs Laboratory Tests Test 12/25/18 09:38 Lab Scanned Report REFERENCE LAB Medications Medication Current Medications IV Flush (NS 3 ml) 3 ml PER PROTOCOL IV ; Start 12/21/18 at 04:30 Ondansetron HCl (Zofran Inj) 4 mg Q4H PRN IV NAUSEA/VOMITING; Start 12/21/18 at 04:30 Acetaminophen (Tylenol Tab) 650 mg Q6H PRN PO .PAIN 1-3 OR TEMP; Start 12/21/18 at 04:30 Docusate Sodium (Colace) 100 mg Q12H PRN PO .CONSTIPATION; Start 12/21/18 at 04:30 Bisacodyl (Dulcolax) 5 mg DAILY PRN PO .CONSTIPATION; Start 12/21/18 at 04:30 Lactobacillus Acidophilus/ Rhamnosus (Culturelle) 1 cap BID PO Last administered on 12/25/18 09:22; Admin Dose 1 CAP; Start 12/22/18 at 21:00 Acetaminophen/ Hydrocodone Bitart ([place] (10/325)) 1 tab Q4H PRN PO MODERATE PAIN LEVEL 4-6 Last administered on 12/25/18 09:29; Admin Dose 1 TAB; Start 12/22/18 at 15:30 Enoxaparin Sodium (Lovenox) 40 mg DAILY SC Last administered on 12/25/18 09:22; Admin Dose 40 MG; Start 12/24/18 at 09:00 Trimethoprim/ Sulfamethoxazole (Bactrim Susp) 20 ml BID NGT Last administered on 12/25/18 09:24; Admin Dose 20 ML; Start 12/25/18 at 09:00 SRAVANI HENDRICKSON MD Dec 25, 2018 12:47
[2018-12-25 14:12] VITALS: BP 116/70; PULSE 84; RESP 18
[2018-12-25 20:07] VITALS: BP 136/77; PULSE 95; RESP 20
[2018-12-26 02:47] VITALS: BP 131/76; RESP 18
[2018-12-26 08:00] VITALS: BP 111/68; PULSE 87; RESP 18
[2018-12-26] MEDS: LACTOBACILLUS RHAMNOSUS CAP PO SCH (09:02)
[2018-12-26] MEDS: ENOXAPARIN 40 MG/0.4 ML SYG SC SCH (09:03)
--- NOTE | 2018-12-26 12:59 | DS ---
Date/Time of Note Date/Time of Note DATE: 12/26/18 TIME: 12:56 Discharge Summary Admission/Discharge Info Admit Date/Time Dec 21, 2018 at 04:05 Discharge Date/Time Dec 26, 2018 at 12:32 Patient Condition: Fair Procedures CT left upper extremity There is extensive diffuse edema throughout the subcutaneous soft tissues of the right upper extremity from the upper arm to the wrist and dorsal hand. No soft tissue gas and no organized fluid collections identified to indicate presence of a drainable abscess. The underlying musculature appears intact and there is no definite evidence of myositis or intramuscular abscess. Vascular structures enhance appropriately. Regional bones are unremarkable. IMPRESSION: Extensive edema throughout the subcutaneous soft tissues of the left upper extremity and dorsal hand consistent with cellulitis. No evidence of abscess or underlying myositis. No soft tissue gas. Ultrasound left upper extremity: No DVT Hx of Present Illness 38-year-old gentleman presents with left upper extremity infection Hospital Course Hospitalist coverage/hospital course A/P 1. LUE cellulitis; improved/ stable, switched from IV to Bactrim and remained stable. Received 3 days of vanco and 1-1/2 days of Bactrim before he left AMA this am. 2. H/o IVDA; meth/ heroin, tobacco; sp tt booster on the recent past 3. Ftt/ homelessness 4. Anemia S: 12/22 moderate pain and edema remains. No fevers chills or nausea. Appetite great. Denies injury but states he is homeless. Possible IVDA associated 12/23: No events no diarrhea or fever. Planning to return to his tent/previous living situation on discharge. 12/24 feels better. No fever diarrhea 12/25: Feels better no events much improved. Home tomorrow if stable 12/26: Left AMA Follow-up Plan Unknown, left AMA Primary Care Provider Care Physician No Primary Time spent on discharge: < 30 minutes SRAVANI HENDRICKSON MD Dec 26, 2018 12:59
== END 2018-12-26 12:32 | disposition left against medical advice (07) | DRG 872 ==
LOC: E/R 19:00 → PP2 12-21 04:05 → E/R 12-21 06:15
PROVIDERS: ADMIT Family Medicine; ATTEND Internal Medicine
DX: A41.9 Sepsis, unspecified organism (principal); L03.114 Cellulitis of left upper limb; D64.9 Anemia, unspecified; F11.10 Opioid abuse, uncomplicated; F15.10 Other stimulant abuse, uncomplicated; F17.200 Nicotine dependence, unspecified, uncomplicated; R62.7 Adult failure to thrive; Z68.21 Body mass index [BMI] 21.0-21.9, adult; Z59.0 Homelessness; Z53.21 Procedure and treatment not carried out due to patient leaving prior to being seen by health care provider
CPT/HCPCS: 36415; 73200; 80048; 80053; 80061; 80202; 80307; 82565; 82728; 83036; 83540; 83735; 84100; 84439; 84443; 84480; 84520; 85025; 85610; 85651; 85730; 86140; 86704; 86709; 86803; 87040; 87340; 93971; 96365; J0295; J1650; J2543; J3370; J7050; L3260; Q9967